=== PATIENT | female | born 1980 | race Caucasian/White ===

== ENCOUNTER 2018-05-04 17:55 | Emergency (ER) | payer MEDICAID, SELFPAY ==
[2018-05-04 18:01] VITALS: BP 158/93; PULSE 112; RESP 20; TEMP 35.9; O2SAT 97
--- NOTE | 2018-05-04 18:20 | ED.GENADUL_ITS ---
Disposition Clinical Impression: Acute odontalgia Disposition: HOME Condition: Good Instructions: Toothache (ED), Dental Abscess (ED), Dental Caries (ED) Additional Instructions: Small, frequent sips of fluids to maintain hydration. He may gargle salt water to reduce the inflammation. Apply warm, moist heat area to increase speed of healing. Your allergies to penicillin and related antibiotics as well as clindamycin make azithromycin a reasonable choice. Please take this prescription as written for 1 week's time. See enclosed dental referral numbers and please make an appointment for follow- up with dentistry. Return to the emergency department for any acute concerns. May use Tylenol 650-975 mg every 4-6 hours, and/or your prescribed ibuprofen. Prescriptions: Azithromycin 250 mg PO DAILY #7 tablet Medical Decision Making - Medical Decision Making 37-year-old female presents with odontalgia and apical tooth infection. She is allergic to penicillin and clindamycin, states she cannot have any related cephalosporins. She will require antibiotic therapy and follow-up with dentistry. Best choice given her limitations would be azithromycin which I will prescribe. Discussed home management as well as return precautions. She stable for outpatient management History of Present Illness - General Chief complaint: DentalOral Stated complaint: DENTAL Time Seen by Provider: 05/04/18 18:10 Source: patient, RN notes reviewed Mode of arrival: ambulatory Limitations: no limitations - History of Present Illness Initial comments: Right upper dental pain: 37-year-old female presents with gradual onset over 2 days time of right upper dental pain that radiates to her cheek. She has poor dentition recently lost her dentist. She has constant pain though is somewhat improved with ibuprofen, worse with eating. Nose change to voice, difficulty swallowing, fever. She has not fallen or struck her face - Related Data Cyclobenzaprine HCl 10 mg PO TID tab-cap 10/30/15 Fluoxetine HCl [Prozac] 60 mg PO DAILY tab-cap 10/30/15 Loratadine 10 mg PO DAILY tab-cap 10/30/15 Meloxicam [Mobic] 15 mg PO DAILY tab-cap 10/30/15 Sumatriptan Succinate [Imitrex] 100 mg PO ONCE tab-cap 10/30/15 Azithromycin 250 mg PO DAILY #7 tablet 05/04/18 Allergies Allergy/AdvReac Type Severity Reaction Status Date / Time clindamycin Allergy Intermediate Hives Unverified 05/04/18 18:04 penicillin V potassium Allergy Unknown Unverified 05/04/18 18:04 [From Pen-Vee K] Sulfa (Sulfonamide Allergy Unknown Unverified 05/04/18 18:04 Antibiotics) Review of Systems Other: 6 systems reviewed, otherwise negative Past Medical History - Past Medical History Medical history: hypertension General Exam - General Limitations: no limitations General appearance: alert, in no apparent distress - Head Head exam: Present: atraumatic, normocephalic - Eye Eye exam: Present: PERRL, EOMI - ENT ENT exam: Present: other (Uvula midline, no pharyngeal swelling or exudate. Multiple dental caries and partial fractures. Tenderness to tooth approximately #7 and 8. No significant fluctuance. No swelling of the buccal or lingual aspect.) - Neck Neck exam: Present: normal inspection, full ROM. Absent: meningismus - Respiratory Respiratory exam: Absent: respiratory distress - Neurological Exam Neurological exam: Present: alert, oriented X3 - Psychiatric Psychiatric exam: Present: normal affect, normal mood - Skin Skin exam: Present: warm, dry, intact Course Vital Signs - 24 hr 05/04/18 18:01 Temperature 35.9 C L Pulse 112 H Respiratory 20 Rate Blood Pressure 158/93 Pulse Oximetry 97
[2018-05-04] MEDS: Azithromycin 250 MG TAB 500 MG PO (18:21)
[2018-05-04] MEDS: Acetaminophen 500 MG TAB 1000 MG PO (18:21)
== END 2018-05-04 18:34 | disposition home or self-care (01) ==
PROVIDERS: Emergency Provider Emergency Medicine; PCP Nurse Practitioner Family
DX: R68.84 Jaw pain (principal); K02.9 Dental caries, unspecified; K04.7 Periapical abscess without sinus; I10 Essential (primary) hypertension
CPT/HCPCS: 99283

== ENCOUNTER 2018-06-16 11:43 | Outpatient (REF) | payer MEDICAID, SELFPAY ==
[2018-06-16 14:37] LABS: Microalb ug/mg Crea 9.3 ug/mg Cr
== END 2018-06-16 12:03 ==
LOC: NCHCN 11:43
PROVIDERS: PCP Nurse Practitioner Family; Visit Provider Nurse Practitioner Family
DX: E66.9 Obesity, unspecified (principal)
CPT/HCPCS: 82043; 82570

== ENCOUNTER 2018-06-19 10:56 | Outpatient (REF) | payer MEDICAID, SELFPAY ==
[2018-06-19 13:33] LABS: ALT 28 U/L (12-78); AST 24 U/L (15-37); Albumin 3.7 g/dL (3.4-5.0); Alkaline Phosphatase 137 U/L (46-116); Anion Gap 10.2 mmol/L (3-11); BUN 11 mg/dL (7-18); Bilirubin, Total 0.3 mg/dL (0.2-1.0); CO2 27.8 mmol/L (21.0-32.0); CREATININE 1.02 mg/dL (0.55-1.02); Calcium 8.7 mg/dL (8.5-10.1); Chloride 102 mmol/L (98-107); Cholesterol 192 mg/dL (50-200); Glucose 99 mg/dL (70-100); HDL Cholesterol 55 mg/dL (40-60); LDL CHOLESTEROL 113 mg/dL (<100); Potassium 4.1 mmol/L (3.5-5.1); Sodium 140 mmol/L (136-145); Total Protein 7.1 g/dL (6.4-8.2); Triglyceride 133 mg/dL (30-150)
== END 2018-06-19 11:16 ==
LOC: NCHCN 10:56
PROVIDERS: PCP Nurse Practitioner Family; Visit Provider Nurse Practitioner Family
DX: E66.9 Obesity, unspecified (principal); Z13.220 Encounter for screening for lipoid disorders; Z13.228 Encounter for screening for other metabolic disorders
CPT/HCPCS: 80053; 80061; 83721

== ENCOUNTER 2018-09-07 16:24 | Outpatient (REF) | payer MEDICAID, SELFPAY ==
[2018-09-07 18:46] LABS: Alkaline Phosphatase 116 U/L (46-116)
== END 2018-09-07 16:44 ==
LOC: NCHCN 16:24
PROVIDERS: PCP Nurse Practitioner Family; Visit Provider Nurse Practitioner Family
DX: R74.8 Abnormal levels of other serum enzymes (principal)
CPT/HCPCS: 84075

== ENCOUNTER 2019-01-13 14:01 | Outpatient (REF) | payer MEDICAID, SELFPAY ==
[2019-01-14 08:19] LABS: HCT 40.3 % (36.0-46.0); HGB 12.5 g/dL (12.0-15.5); Mean Corpuscular Hemoglobin 26.7 pg (27.0-33.0); Mean Corpuscular Volume 85.9 fL (80-95); Mean Platelet Volume 10.1 fL (8.0-11.0); Platelet Count 372 x1000/uL (130-400); RBC 4.69 m/cumm (4.00-5.20); White Blood Cell Count 8.47 k/cumm (4.4-10.8)
[2019-01-14 10:23] LABS: ALT 22 U/L (12-78); AST 14 U/L (15-37); Albumin 3.5 g/dL (3.4-5.0); Alkaline Phosphatase 131 U/L (46-116); Anion Gap 7.5 mmol/L (3-11); BUN 10 mg/dL (7-18); Bilirubin, Total 0.2 mg/dL (0.2-1.0); CO2 30.5 mmol/L (21.0-32.0); CREATININE 0.84 mg/dL (0.55-1.02); Calcium 9.1 mg/dL (8.5-10.1); Chloride 102 mmol/L (98-107); Glucose 97 mg/dL (70-100); Potassium 3.8 mmol/L (3.5-5.1); Sodium 140 mmol/L (136-145); TSH (W/Ref FT4) 3.22 uIU/mL (0.358-3.74)
== END 2019-01-13 14:21 ==
LOC: NCHCN 14:01
PROVIDERS: PCP Nurse Practitioner Family; Visit Provider Nurse Practitioner Family
DX: F32.9 Major depressive disorder, single episode, unspecified (principal); R53.83 Other fatigue; R60.0 Localized edema
CPT/HCPCS: 80053; 85027; 84443

== ENCOUNTER 2019-04-27 12:19 | Outpatient (CLI) | payer MEDICAID, SELFPAY ==
--- NOTE | 2019-04-27 15:44 | HPE_ITS ---
Date of service: 04/27/19 Assessment and Plan (1) Left carpal tunnel syndrome: Current visit: Yes Status: Chronic Left ECTR Details of surgery were discussed with patient as well as risks and pertinent anatomy. All questions were answered. History of Present Illness Chief Complaint: Left hand numbness and pain Narrative: Susan is a 38-year-old female who comes in today for a preop history and physical for a left ECTR. She has been dealing with left hand pain and numbness for a few years now. She has had nerve conduction studies about 3 years ago which did not show significant latency in any of the nerves, but her clinical presentation is very suggestive of carpal tunnel syndrome of the left hand. She has numbness and tingling especially at night, but also when she is driving or trying to use her arm in space. She has responded pretty well to nighttime splinting, but still continues to have symptoms even despite this treatment. She has done very well from a right OCTR performed by Dr. Palmer about 3 years ago, and since she has not responded completely with conservative treatments on the left side, Dr. Hernandez does offer a left ECTR at this time. She agrees with this plan and is anxious to proceed. Pertinent Surgical Information Patient denies history of hypertension, CVA, [place], angina, asthma, COPD, renal or liver disorders, hepatitis, bleeding disorders, diabetes, immune or thyroid disorders. No complications from anesthesia. Review of Systems Constitutional Denies fever(s) ENT Denies dizziness and Denies sore throat Cardiovascular Denies chest pain, Denies palpitations and Denies dyspnea Respiratory Denies cough and Denies dyspnea Gastrointestinal Denies abdominal pain, Denies melena, Denies hematochezia, Denies diarrhea, Denies nausea and Denies vomiting Genitourinary Denies hematuria and Denies dysuria Neurologic Denies dizziness Endocrine Denies palpitations [facility] Medical History (Updated 04/27/19 @ 15:55 by RACHEL Carreon) Anxiety (Chronic) Hypertension (Chronic) Migraines (Chronic) Morbid obesity (Acute) Personality disorder (Acute) Surgical History History of tubal ligation (Chronic) Hx of eye surgery (Acute) Hx of oophorectomy (Acute) Open Carpal Tunnel release (01/09/16) Family History Mother Hypertension Father Diabetes Father Narcolepsy Social History (Updated 04/27/19 @ 15:53 by RACHEL Carreon) Smoking/Tobacco Use Status: Current every day Tobacco Type: cigarettes Smoking packs per day: 0.5 Drug use: Occasionally Substance use type: marijuana Do you feel safe at home: Yes Do you feel safe in your relationship?: Yes Meds Home Medications Medication Instructions Recorded Confirmed Type cyclobenzaprine 10 mg PO TID tab-cap 10/30/15 04/27/19 History fluoxetine [Prozac] 60 mg PO DAILY tab-cap 10/30/15 04/27/19 History loratadine 10 mg PO DAILY tab-cap 10/30/15 04/27/19 History meloxicam [Mobic] 15 mg PO DAILY tab-cap 10/30/15 04/27/19 History sumatriptan succinate [Imitrex] 100 mg PO ONCE tab-cap 10/30/15 04/27/19 History hydrochlorothiazide 12.5 mg PO QAM 04/27/19 04/27/19 History Allergies Allergy/AdvReac Type Severity Reaction Status Date / Time clindamycin Allergy Intermediate Hives Unverified 04/27/19 12:52 penicillin V potassium Allergy Unknown Unverified 04/27/19 12:52 [From Albin-Desiree K] Sulfa (Sulfonamide Allergy Unknown Unverified 04/27/19 12:52 Antibiotics) Exam [facility] Head: normocephalic and atraumatic General nose exam: no nasal discharge Throat: uvula midline and no uvular edema Other: soft palate rises symmetrically, no erythema Eyes Conjunctivae: conjunctivae normal Sclera: sclerae normal Pupils: PERRL Resp Effort & Inspection: normal respiratory effort Auscultation: clear to auscultation bilaterally and no wheezes Cardio Rate: regular rate Rhythm: regular rhythm Heart Sounds: S1 normal, S2 normal and no murmurs GI Palpation: soft, no hepatosplenomegaly and nontender Auscultation: normal bowel sounds
== END 2019-04-27 12:39 ==
PROVIDERS: PCP Nurse Practitioner; Visit Provider Student in an Organized Health Care Education/Training Program
DX: Z01.818 Encounter for other preprocedural examination (principal)
CPT/HCPCS: NC

== ENCOUNTER 2019-04-29 15:46 | Outpatient (REF) | payer MEDICAID, SELFPAY ==
[2019-04-29 18:37] LABS: ALT 26 U/L (12-78); AST 17 U/L (15-37); Albumin 3.5 g/dL (3.4-5.0); Alkaline Phosphatase 119 U/L (46-116); Anion Gap 9.4 mmol/L (3-11); BUN 10 mg/dL (7-18); Bilirubin, Total 0.2 mg/dL (0.2-1.0); CO2 26.6 mmol/L (21.0-32.0); Calcium 8.9 mg/dL (8.5-10.1); Chloride 104 mmol/L (98-107); Glucose 101 mg/dL (70-100); Potassium 4.1 mmol/L (3.5-5.1); Sodium 140 mmol/L (136-145)
== END 2019-04-29 16:06 ==
LOC: NCHCN 15:46
PROVIDERS: PCP Nurse Practitioner; Visit Provider Nurse Practitioner Family
DX: I10 Essential (primary) hypertension (principal); R60.0 Localized edema; R74.8 Abnormal levels of other serum enzymes
CPT/HCPCS: 80053

== ENCOUNTER 2019-05-04 10:42 | Day surgery (SDC) | payer MEDICAID, SELFPAY ==
[2019-04-27 12:44] VITALS: BP 148/98; PULSE 82; RESP 18; TEMP 36.7; O2SAT 96
[2019-05-04 11:03] VITALS: BP 143/97; PULSE 99; RESP 18; TEMP 35.6; O2SAT 99
[2019-05-04] MEDS: Lactated Ringers 1,000 ML 80 ML IV (11:32)
--- NOTE | 2019-05-04 11:35 | W.PM.DSUDISC ---
Discharge Plan Disposition Patient Disposition: HOME Condition: Good Discharge Details Reason For Visit: (L) CTS Attending Provider: Charles Hernandez Primary Care Provider: Joselyn Lino Home Meds and New Rx's Prescriptions: New hydrocodone-acetaminophen 5-325 mg tablet 1 tab PO Q6H PRN (Reason: severe pain) Qty: 4 RF: 0 acetaminophen 500 mg tablet 500 mg PO Q6H PRN (Reason: pain) Qty: 60 RF: 0 ibuprofen 600 mg tablet 600 mg PO TID PRN (Reason: pain) Qty: 60 RF: 0 Continued fluoxetine [Prozac] 40 MG capsule 60 mg PO DAILY RF: 0 cyclobenzaprine 10 MG tablet 10 mg PO TID RF: 0 sumatriptan succinate [Imitrex] 100 MG tablet 100 mg PO ONCE RF: 0 meloxicam [Mobic] 15 MG tablet 15 mg PO DAILY RF: 0 loratadine 10 MG tablet 10 mg PO DAILY RF: 0 hydrochlorothiazide 12.5 mg Tablet 12.5 mg PO QAM RF: 0 melatonin 10 mg Tablet 10 mg PO HS RF: 0 Discharge Instructions Stand Alone Forms: David Gramajo Tunnel Release Referrals: Charles Hernandez MD [ [facility] STAFF PHYSICIAN] - Activity:: Elevate Remove Dressings/Wound Care:: 72 hours Shower/Bathe:: 72 hours Diet:: As Tolerated Discharge Orders Discharge Orders: Discharge Order (Routine); Ordered 05/04/19 Ordered By: Taylor Gan DS: Diagnosis Discharge Diagnosis (1) Left carpal tunnel syndrome: Status: Chronic
[2019-05-04] MEDS: ceFAZolin 3,000 MG in Normal Saline 100 ML 200 MG IVPB (15:53)
[2019-05-04] MEDS: Lidocaine 1% Multi-Dose 50 ML VIAL (16:00)
[2019-05-04] MEDS: Sodium Bicarbonate 50 MEQ/50 ML VIAL (16:00)
--- NOTE | 2019-05-04 16:24 | W.PM.OP ---
Date of service: 05/04/19 Time of Service: 16:25 Operative Note DATE OF PROCEDURE: 05/04/19 PRE-OP DIAGNOSIS: Left Carpal Tunnel Syndrome POST-OP DIAGNOSIS: same PROCEDURE: Left Endoscopic Carpal Tunnel Release SURGEON: Charles Hernandez ANESTHESIA: MAC ESTIMATED BLOOD LOSS: 0 PATHOLOGY: none sent TOURNIQUET TIME: 10 COMPLICATIONS: None Patient was transported to: same day Patient's condition: stable Indications: I have seen Susan in clinic for symptoms of carpal tunnel syndrome. The numbness, tingling, and pain limited function. Clinical exam findings with nerve conduction tests confirmed the diagnosis of carpal tunnel syndrome. Nonoperative measures such as bracing, time, activity modifications had been tried but disability and pain persisted. I discussed carpal tunnel release with the patient. I reviewed the risks of the procedure to include, but not limited to, bleeding, infection, pain, stiffness, incomplete release, damage to nerves or vessels, persistent numbness, recurrence. Despite these risks, the patient elected to proceed. Findings: There was tightened carpal tunnel. This was dilated and released successfully with the endoscopic with increased space within the tunnel. The antebrachial fascia was released proximally freeing the median nerve at the wrist. Procedure Description: Susan was greeted in the preoperative holding area where the correct side was identified and marked. The consent was reviewed with the patient and signed. The history and physical was updated. All questions were answered. She was taken back to the operating room. The patient was placed into the supine position on the operating room table with the left arm on an arm board. A nonsterile tourniquet was placed high onto the arm. All bony prominences were well padded. Prophylactic antibiotics in the form of Cefazolin were administered. The left arm was then prepped with Chloraprep and draped in a standard fashion with stockinette and extremity drape. A timeout to confirm correct identity, side and site, procedure, allergies, anesthesia, and medical concerns was performed. The surgical site was marked in the volar wrist creases in line with the radial border of the fourth ray. This area was anesthetized with approximately 6cc of 1% Lidocaine. The limb was then exsanguinated with an Esmarch. The skin was incised with a 15 blade, approximately 1cm. The skin only was cut and the deeper tissue was dissected bluntly with a tenotomy scissor, avoiding passing nerve and venous structures. The fascia was penetrated and opened bluntly. A two-prong skin hook was placed under this proximal fascial edge. A series of hamate finders were used to identify and dilate the carpal tunnel. Synovial elevator was used to free synovial attachments to the underside of the transverse carpal ligament. My thumb was kept in the palm to milton the distal extent of the carpal tunnel and correctly position the hand. The Microaire endoscope was inserted without difficulty and without resistance. Excellent visualization showed horizontally running fibers of the transverse carpal ligament (TCL). The distal extent of the TCL was visualized and the end of the scope palpated with the thumb. The blade was elevated and withdrawn from distal to proximal. The TCL was split into two flaps. The endoscope was reinserted to confirm complete release and any remnant ligament was incised. The scope was withdrawn and the proximal aspect of the carpal tunnel was grossly inspected and appeared release with the median nerve visible. The antebrachial fascia at the level of the wrist was then freed from the overlying skin and then the underlying median nerve with blunt dissection. This was transected longitudinally for about 3cm proximal to the wrist incision. The wound was then irrigated with easy flow of irrigant distally and proximally. The incision was closed with a single 4-0 Nylon suture. The wound was dressed with Xeroform, Gauze, Kerlix and Efrem. The tourniquet was deflated with the initial dressing and held with some pressure. Blood flow returned easily to all digits with capillary refill less than 2 seconds. The patient tolerated the procedure well and was returned to the Same Day Surgery area in a stable condition suffering no known complication.
[2019-05-04 16:50] VITALS: BP 117/77; PULSE 88; RESP 18; TEMP 36.6; O2SAT 98
== END 2019-05-04 17:12 | disposition home or self-care (01) ==
PROVIDERS: PCP Nurse Practitioner; Visit Provider Student in an Organized Health Care Education/Training Program
PROC: 01N54ZZ Release Median Nerve, Percutaneous Endoscopic Approach (ICD-10-PCS; CPT 29848; principal; 2019-05-04 13:30)
DX: G56.02 Carpal tunnel syndrome, left upper limb (principal)
CPT/HCPCS: 29848; J0690; J2250; L3650

== ENCOUNTER 2019-06-22 19:14 | Outpatient (REF) | payer MEDICAID, SELFPAY ==
[2019-06-22 19:29] LABS: ALT 23 U/L (14-59); AST 13 U/L (15-37); Albumin 3.6 g/dL (3.4-5.0); Alkaline Phosphatase 132 U/L (46-116); Anion Gap 11.1 mmol/L (3-11); BUN 12 mg/dL (7-18); Bilirubin, Total 0.2 mg/dL (0.2-1.0); CO2 26.9 mmol/L (21.0-32.0); CREATININE 0.93 mg/dL (0.55-1.02); Calcium 9.6 mg/dL (8.5-10.1); Calculated LDL 113 mg/dL; Chloride 102 mmol/L (98-107); Cholesterol 194 mg/dL (50-200); Glucose 103 mg/dL (70-100); HCT 41.3 % (36.0-46.0); HDL Cholesterol 47 mg/dL (40-60); Mean Corp. HGB Concentration 31.5 g/dL (32.0-36.0); Mean Corpuscular Hemoglobin 26.9 pg (27.0-33.0); Mean Corpuscular Volume 85.5 fL (80-95); Mean Platelet Volume 9.9 fL (8.0-11.0); Platelet Count 418 x1000/uL (130-400); Potassium 4.1 mmol/L (3.5-5.1); RBC 4.83 m/cumm (4.00-5.20); RBC Distribution Width 15.5 % (11.7-14.6); Sodium 140 mmol/L (136-145); Total Protein 7.3 g/dL (6.4-8.2); Triglyceride 170 mg/dL (30-150); White Blood Cell Count 8.61 k/cumm (4.4-10.8)
== END 2019-06-22 19:34 ==
LOC: NCHCN 19:14
PROVIDERS: PCP Nurse Practitioner; Visit Provider Nurse Practitioner Family
DX: I10 Essential (primary) hypertension (principal)
CPT/HCPCS: 80053; 80061; 85027

== ENCOUNTER 2020-05-19 14:10 | Outpatient (REF) | payer MEDICAID, SELFPAY ==
[2020-05-19 18:53] LABS: COMMENT (LAB VIEW ONLY) 222.67 mg/dL; Microalb ug/mg Crea 3.2 ug/mg Cr
== END 2020-05-19 14:30 ==
LOC: NCHCN 14:10
PROVIDERS: PCP Nurse Practitioner; Visit Provider Nurse Practitioner Family
DX: I10 Essential (primary) hypertension (principal); R73.03 Prediabetes; R74.8 Abnormal levels of other serum enzymes
CPT/HCPCS: 82043; 82570

== ENCOUNTER 2020-05-22 20:16 | Outpatient (REF) | payer MEDICAID, SELFPAY ==
[2020-05-22 19:24] LABS: HCT 40.7 % (36.0-46.0); HGB 12.7 g/dL (11.2-15.7); MCHC 31.2 % (32.0-36.0); MCV 83.4 fL (80-95); MPV 9.7 fL (8.0-11.0); Platelet Count 370 10^3/uL (130-400); RBC 4.88 10^6/uL (3.93-5.22); RDW 14.7 % (11.7-14.6); RDW-SD 44.7 fL; WBC 7.01 10^3/uL (4.4-10.8)
[2020-05-22 20:27] LABS: Hemoglobin A1C 6.4 % (<5.7)
== END 2020-05-22 20:36 ==
LOC: NCHCN 20:16
PROVIDERS: PCP Nurse Practitioner; Visit Provider Nurse Practitioner Family
DX: R73.03 Prediabetes (principal); I10 Essential (primary) hypertension; R74.8 Abnormal levels of other serum enzymes
CPT/HCPCS: 85027; 82043; 82570; 83036

== ENCOUNTER 2020-07-21 03:09 | Outpatient (CLI) | payer MEDICAID, SELFPAY ==
--- NOTE | 2020-07-21 | DI.RAD_ITS ---
EXAM: XR FOOT LT COMPLETE CLINICAL HISTORY: LT HEEL PAIN,M79.672 TECHNIQUE: COMPARISON: No exams were available for comparison FINDINGS: Three views were obtained. There is are prominent osteophyte of the site of attachment of the planta r fascia on the calcaneus. There is a small Achilles attachment osteophyte as well. No other bony o r soft tissue abnormality seen. IMPRESSION: RADIATION DOSE DELIVERED: Total DLP
== END 2020-07-21 03:29 ==
PROVIDERS: PCP Nurse Practitioner Family; Visit Provider Nurse Practitioner Family
DX: M79.672 Pain in left foot (principal); M25.775 Osteophyte, left foot
CPT/HCPCS: 73630

== ENCOUNTER 2021-03-07 14:58 | Outpatient (REF) | payer MEDICAID, SELFPAY ==
--- NOTE | 2021-03-07 13:45 | PAPFT_PTH ---
PATIENT: Susan Delcid LOC: [facility] U#:[id number] AGE/SX: 40/F ROOM: RE03/07/[address]: Kassy Le NP : 1980 BED: DIS: 03/07/2021 SPEC #: [id number] RECD: 03/07/21 18:10 STATUS: FABIANO SILVER #: [id number] OYSSI: 03/07/21 13:[address]: Kassy Le NP DEPT: [facility] Cytology RECD BY: Laurie Castro ENTERED: 03/07/21 18:10 SP TYPE: PAPFT OTHR DR: Ronnie Walsh Tissues: 1 - CX/ENDOCX FOR PAP SMEARS Procedures: PAP THIN PREP/UVM Screening HPV DNA PROBE Comments: [id number]
== END 2021-03-07 14:59 | disposition home or self-care (01) ==
LOC: LBN 14:58
PROVIDERS: PCP Nurse Practitioner Family; Visit Provider Nurse Practitioner Women's Health
DX: Z12.4 Encounter for screening for malignant neoplasm of cervix (principal); Z11.51 Encounter for screening for human papillomavirus (HPV)
CPT/HCPCS: 88142; 87624

== ENCOUNTER 2021-03-30 04:16 | Outpatient (CLI) | payer MEDICAID, SELFPAY ==
--- NOTE | 2021-03-30 07:00 | DI.MAMMO_ITS ---
Exam(s) MAMMO SCREENING EXAM: MAMMO SCREENING CLINICAL HISTORY: screening,Z12.39 TECHNIQUE: Mammograms were interpreted according to the usual protocol including computer analysis w [employer] CAD system, tomosynthesis and C-view imaging. COMPARISON: None. Baseline examination. FINDINGS: The breasts are composed of scattered fibroglandular densities, Breast Density category B. In the right breast, there is a question of partially obscured nodule seen in the central subareolar region on the CC view. Spot compression views are recommended for further evaluation. Ultrasound may also be indicated at that time. No suspicious masses or suspicious microcalcifications are seen in th e left breast.. No skin thickening or abnormal axillary lymph nodes are seen in either breast. . IMPRESSION: BI-RADS Cat 0 - Assessment Incomplete: Need additional imaging evaluation Breast Density - Category B, scattered fibroglandular densities. A negative radiographic report should not delay biopsy if a dominant or clinically suspicious mass is present. Up to ten percent of cancers are not identified on mammography. A negative report may reinforce clinical impression. Adenosis and dense breasts may obscure an underlying neoplasm. False positive reports average 6 to 10%. Patient will receive a letter notifying them of these results.
--- NOTE | 2021-03-30 07:00 | DI.US_ITS ---
Exam(s) US PELVIS TRANSVAGINAL EXAM: US PELVIS TRANSVAGINAL CLINICAL HISTORY: Amenorrhea for 3 years, heavy bleeding last week,N92.1 TECHNIQUE: Transabdominal and transvaginal imaging was performed using standard protocol. COMPARISON: US PELVIS TRANSVAG from 04/04/2011 US PELVIS TRANSVAG from 04/04/2011 FINDINGS: KIDNEYS: Kidneys are symmetric in size. No evidence of renal calculi. No evidence of hydronephrosis. No renal mass or cyst identified. UTERUS: Anteverted. 7.1 x 3.8 x 4.4 cm Endometrium: 10 millimeters, hypervascular common no focal mass or fluid in the endometrial canal. Myometrium: Unremarkable. Cervix: Unremarkable. OVARIES: Right: Cyst or mass: Not visualized. Question prior right oophorectomy. A dermoid was noted on the right in 2010. Left: Cyst or mass: Cystic area with debris on the left ovary 1.9 cm. DOPPLER: Arterial and venous flow demonstrated to the left ovary.. CUL-DE-SAC: Free fluid: None. IMPRESSION: 1. Thickened hypervascular endometrium. No focal lesion visible.. 2. 1.9 centimeter complex cyst of the left ovary. A follow-up exam could be considered. 3. Apparent prior right oophorectomy. DATA REPOSITORY:
== END 2021-03-30 04:36 ==
PROVIDERS: PCP Nurse Practitioner Family; Visit Provider Nurse Practitioner Women's Health
DX: Z12.31 Encounter for screening mammogram for malignant neoplasm of breast (principal); R92.8 Other abnormal and inconclusive findings on diagnostic imaging of breast; N83.202 Unspecified ovarian cyst, left side; R93.89 Abnormal findings on diagnostic imaging of other specified body structures; N93.8 Other specified abnormal uterine and vaginal bleeding; Z90.721 Acquired absence of ovaries, unilateral
CPT/HCPCS: 77063; 77067; 76830; 76856

== ENCOUNTER 2021-04-05 14:40 | Outpatient (REF) | payer MEDICAID, SELFPAY ==
--- NOTE | 2021-04-05 14:00 | ENDOMET_PTH ---
PATIENT: Susan Delcid LOC: N U#:[id number] AGE/SX: 40/F ROOM: RE04/05/[address]: Michelle Palomo : 1980 BED: DIS: 04/05/2021 SPEC #: [id number] RECD: 04/05/21 17:54 STATUS: FABIANO REQ #: [id number] YOSSI: 04/05/21 14:[address]: Michelle Palomo DEPT: Surgical Specimen RECD BY: Laurie Castro ENTERED: 04/05/21 17:54 SP TYPE: Endomet OTHR DR: Ronnie Walsh Tissues: 1 - ENDOMETRIUM BX/MONA Procedures: GROSS AND MICRO LEVEL 4 Comments: [id number]
== END 2021-04-05 14:41 | disposition home or self-care (01) ==
LOC: LBN 14:40
PROVIDERS: PCP Nurse Practitioner Family; Visit Provider Obstetrics & Gynecology Gynecology
DX: N93.8 Other specified abnormal uterine and vaginal bleeding (principal); N85.8 Other specified noninflammatory disorders of uterus
CPT/HCPCS: 88305

== ENCOUNTER 2021-04-20 03:49 | Outpatient (CLI) | payer MEDICAID, SELFPAY ==
--- NOTE | 2021-04-20 | DI.US_ITS ---
Exam(s) MG MAMMO SCREEN CALL BACK UNI US BREAST RT LIMITED EXAM: MG MAMMO SCREEN CALL BACK UNI and U/S breast RT limited CLINICAL HISTORY: F/U MAMMO, ? RT BREAST NODULE. TECHNIQUE: Craniocaudal and mediolateral oblique Full Field Digital Mammography views of the right b reast with Computer Aided Diagnosis followed by Tomosynthesis and right breast ultrasound. COMPARISON: Comparison is made with baseline examination. FINDINGS: Mammography/Tomosynthesis: Masses/Architectural Distortion: The 0.6 cm area of nodularity in the retroareolar region of the righ t breast persists. Microcalcifictions: No suspicious pleomorphic-type are seen. Skin Thickening/Nipple Retraction: None. Right breast US: Echotexture: Normal appearance of the glandular tissue. Shadowing: No suspicious foci. Cyst: At the 12 o'clock position 11 cm from the nipple there is a 3 cm simple cyst. At the 12 o'cloc k position 3 cm from the nipple there is a 0.5 x 0.2 x 0.4 cm hypoechoic nodule with sonographic appe arance of a lymph node. This appears to correspond to the mammographic abnormality. At the 12 o'violeta ck position 1 cm from the nipple there is a 4 mm cyst present. Solid lesions: None seen. Ductal dilation: None. IMPRESSION: 1. No definite evidence of malignancy is noted. 2. A follow-up mammogram and ultrasound are requested in 3 months on the right breast. 3. The findings were discussed with the patient on the date of the examination. BI-RADS Category 3 - Probably Benign Finding: Recommend follow-up imaging in 3 months Breast Density - Category B - Scattered areas of fibroglandular density Breast density Category C or D implies that the patient has dense breast tissue. Dense breast tissue can make it harder to find cancer on a mammogram. Dense breast tissue is also associated with an incr eased risk of breast cancer. This information about the result of the mammogram report was provided to the patient to raise their awareness. Use this report when you speak with the patient about their risks for breast cancer, which includes their family history. At that time, you may recommend additional screening tests (Ultrasoun d or MRI) as these tests may add significant information. A negative radiographic report should not delay biopsy if a dominant or clinically suspicious mass is present. Up to ten percent of cancers are not identified on mammography. A negative report may reinforce clinical impression. Adenosis and dense breasts may obscure an underlying neoplasm. False positive reports average 6 to 10%. Patient will receive a letter notifying them of these results.
== END 2021-04-20 04:09 ==
PROVIDERS: PCP Nurse Practitioner Family; Visit Provider Nurse Practitioner Women's Health
DX: Z12.31 Encounter for screening mammogram for malignant neoplasm of breast (principal); R92.8 Other abnormal and inconclusive findings on diagnostic imaging of breast
CPT/HCPCS: 76642; 77063; 77067

== ENCOUNTER 2021-07-25 00:39 | Outpatient (CLI) | payer MEDICAID, SELFPAY ==
--- NOTE | 2021-07-25 | DI.US_ITS ---
Exam(s) US BREAST RT COMPLETE EXAM: US BREAST RT COMPLETE CLINICAL HISTORY: 3 MO F/U, F/U ABNL MAMMO, R92.8. TECHNIQUE: Complete ultrasound of the right breast was performed including all 4 quadrants, the retr oareolar region, and the ipsilateral axilla. COMPARISON: Prior mammograms were reviewed. Prior ultrasound 04/20/2021 was also reviewed FINDINGS: There are 3 ultrasound findings in the right breast again noted. These all are located at 12 o'clock position and all have the appearance of microcysts. Approximately 11 cm from the nipple there is a 3 x 2 millimeter microcyst again noted. Approximately 2 cm from the nipple there is a 3 x 1 millimeter microcyst noted Approximately 2 cm from the nipple there is also a 3 x 2 millimeter microcyst. Most importantly, there are no solid lesions in all 4 quadrants of the right breast and no adenopathy in the right axilla. IMPRESSION: Stable benign 3 microcysts at 12 o'clock position of the right breast as described above, unchanged f rom the prior ultrasound. There is no ultrasound finding to correspond to the asymmetric density see n on the right breast CC mammographic view (which is not truly evident on the MLO view). Appropriate follow-up is repeat mammogram in March 2022, with earlier imaging if a self detected breas t changes noted.. BI-RADS Category 2 - Benign Findings Breast Density - Category B - Scattered areas of fibroglandular density Breast density Category C or D implies that the patient has dense breast tissue. Dense breast tissue can make it harder to find cancer on a mammogram. Dense breast tissue is also associated with an incr eased risk of breast cancer. This information about the result of the mammogram report was provided to the patient to raise their awareness. Use this report when you speak with the patient about their risks for breast cancer, which includes their family history. At that time, you may recommend additional screening tests (Ultrasoun d or MRI) as these tests may add significant information. A negative radiographic report should not delay biopsy if a dominant or clinically suspicious mass is present. Up to ten percent of cancers are not identified on mammography. A negative report may reinforce clinical impression. Adenosis and dense breasts may obscure an underlying neoplasm. False positive reports average 6 to 10%. Patient will receive a letter notifying them of these results.
--- NOTE | 2021-07-25 10:26 | DI.MAMMO_ITS ---
Exam(s) MAMMO DIAGNOSTIC UNI EXAM: MAMMO DIAGNOSTIC UNI-RIGHT CLINICAL HISTORY: 3 MO F/U, F/U ABNL MAMMO, R92.8. TECHNIQUE: Unilateral spot mammographic images were obtained with 3D tomosynthesis technique and uti lizing computer aided detection (CAD). COMPARISON: Prior baseline mammogram performed March 2021. Prior ultrasound 04/20/2021 was also revi ewed FINDINGS: Previously described asymmetric density in the right breast is unchanged on the mammogram. There are no new significant mammographic findings in the right breast. Following this diagnostic right breast mammogram we performed complete right breast ultrasound which not reveal evidence of a solid nodule. It revealed unchanged microcysts at 12 o'clock position. Please see separate breast report dictation from today. IMPRESSION: Stable benign-appearing mammographic findings. See separate ultrasound report which does not reveal concerning solid lesion. Appropriate follow-up is to keep this patient on her yearly mammogram schedule, this implying that he r next mammogram would be in March 2022, with earlier imaging if a self detected breast changes noted. . Despite relatively young age she had this mammogram in March 2022 The patient was informed of the findings and follow-up recommendations prior to leaving the [facility]. BI-RADS Category 2 - Benign Findings Breast Density - Category B - Scattered areas of fibroglandular density Breast density Category C or D implies that the patient has dense breast tissue. Dense breast tissue can make it harder to find cancer on a mammogram. Dense breast tissue is also associated with an incr eased risk of breast cancer. This information about the result of the mammogram report was provided to the patient to raise their awareness. Use this report when you speak with the patient about their risks for breast cancer, which includes their family history. At that time, you may recommend additional screening tests (Ultrasoun d or MRI) as these tests may add significant information. A negative radiographic report should not delay biopsy if a dominant or clinically suspicious mass is present. Up to ten percent of cancers are not identified on mammography. A negative report may reinforce clinical impression. Adenosis and dense breasts may obscure an underlying neoplasm. False positive reports average 6 to 10%. Patient will receive a letter notifying them of these results.
== END 2021-07-25 00:59 ==
PROVIDERS: PCP Nurse Practitioner Family; Visit Provider Nurse Practitioner Women's Health
DX: R92.8 Other abnormal and inconclusive findings on diagnostic imaging of breast (principal)
CPT/HCPCS: 76642; 77061; 77065; G0279

== ENCOUNTER 2022-02-01 18:49 | Outpatient (REF) | payer MEDICAID, SELFPAY ==
[2022-02-01 15:09] LABS: HCT 40.8 % (36.0-46.0); HGB 12.5 g/dL (11.2-15.7); MCH 25.7 pg (27.0-33.0); MCHC 30.6 % (32.0-36.0); MCV 84 fL (80-95); MPV 9.7 fL (8.0-11.0); Platelet Count 409 10^3/uL (130-400); RBC 4.87 10^6/uL (3.93-5.22); RDW 15.5 % (11.7-14.6); RDW-SD 47.8 fL; WBC 9.52 10^3/uL (4.4-10.8)
[2022-02-01 15:30] LABS: ALT 19 U/L (14-59); AST 12 U/L (15-37); Albumin 3.6 g/dL (3.4-5.0); Alkaline Phosphatase 119 U/L (46-116); Anion Gap 9.8 mmol/L (3-11); BUN 14 mg/dL (7-18); Bilirubin, Total 0.2 mg/dL (0.2-1.0); CO2 27.2 mmol/L (21.0-32.0); CREATININE 0.8 mg/dL (0.55-1.02); Calcium 8.8 mg/dL (8.5-10.1); Calculated LDL 121 mg/dL (<100); Chloride 104 mmol/L (98-107); Cholesterol 193 mg/dL (<200); Glucose 104 mg/dL (74-106); HDL Cholesterol 52 mg/dL (40-60); Sodium 141 mmol/L (136-145); Triglyceride 103 mg/dL (<150)
[2022-02-01 15:45] LABS: Hemoglobin A1C 6.1 % (<5.7)
== END 2022-02-01 18:50 | disposition home or self-care (01) ==
LOC: NCHCN 18:49
PROVIDERS: PCP Nurse Practitioner Family; Visit Provider Physician Assistant
DX: R73.03 Prediabetes (principal); I10 Essential (primary) hypertension
CPT/HCPCS: 80053; 80061; 85027; 83036

== ENCOUNTER 2022-12-31 17:07 | Outpatient (REF) | payer MEDICAID, SELFPAY ==
[2022-12-31 19:06] LABS: ALT 27 U/L (14-59); AST 15 U/L (15-37); Albumin 3.8 g/dL (3.4-5.0); Alkaline Phosphatase 116 U/L (46-116); Anion Gap 8.6 mmol/L (3-11); BUN 15 mg/dL (7-18); Bilirubin, Total 0.2 mg/dL (0.2-1.0); CO2 28.4 mmol/L (21.0-32.0); CREATININE 0.9 mg/dL (0.55-1.02); Calcium 9.1 mg/dL (8.5-10.1); Calculated LDL 132 mg/dL (<100); Chloride 100 mmol/L (98-107); Cholesterol 213 mg/dL (<200); Estimated GFR 81.86 (mL/min/1.73m2); Glucose 95 mg/dL (74-106); HDL Cholesterol 51 mg/dL (40-60); Potassium 4.1 mmol/L (3.5-5.1); Sodium 137 mmol/L (136-145); Total Protein 7.5 g/dL (6.4-8.2); Triglyceride 151 mg/dL (<150)
== END 2022-12-31 17:08 | disposition home or self-care (01) ==
LOC: NCHCN 17:07
PROVIDERS: Visit Provider Physician Assistant
DX: R73.03 Prediabetes (principal); I10 Essential (primary) hypertension
CPT/HCPCS: 80053; 80061; 83036

== ENCOUNTER 2023-04-14 03:28 | Outpatient (CLI) | payer MEDICAID, SELFPAY ==
--- NOTE | 2023-04-14 | DI.MAMMO_ITS ---
Exam(s) MAMMO SCREENING EXAM: MAMMO SCREENING CLINICAL HISTORY: SCREENING FOR BREAST CANCER Z12.39. TECHNIQUE: Bilateral full field digital CC and MLO mammographic images were obtained with 3D tomosyn thesis and utilizing computer aided detection (CAD). COMPARISON: Prior mammograms were reviewed. Prior ultrasound examinations also reviewed FINDINGS: No new findings in the left breast. In the right breast the previously described nodule which was shown to be a microcyst on ultrasound i s again noted. However, superimposed upon the same nodule we note on the 3D cc view a 2nd nodule of similar size, approximately 6 x 4 mm. No malignant-appearing microcalcification groups. There is no significant architectural distortion nor skin thickening-retraction. IMPRESSION: 1. No radiographic evidence of malignancy in left breast. 2. There are now 2 nodules in the right breast, one at the 12 o'clock position and the other at the 6 o'clock position. These are superimposed upon each other on the CC image, only separable with 3D c c imaging. Recommend spot compression view and right breast ultrasound. BI-RADS Category 0 - Assessment Incomplete: Need additional imaging evaluation Breast Density - Category B - Scattered areas of fibroglandular density Breast density Category C or D implies that the patient has dense breast tissue. Dense breast tissue can make it harder to find cancer on a mammogram. Dense breast tissue is also associated with an incr eased risk of breast cancer. This information about the result of the mammogram report was provided to the patient to raise their awareness. Use this report when you speak with the patient about their risks for breast cancer, which includes their family history. At that time, you may recommend additional screening tests (Ultrasoun d or MRI) as these tests may add significant information. A negative radiographic report should not delay biopsy if a dominant or clinically suspicious mass is present. Up to ten percent of cancers are not identified on mammography. A negative report may reinforce clinical impression. Adenosis and dense breasts may obscure an underlying neoplasm. False positive reports average 6 to 10%. Patient will receive a letter notifying them of these results.
== END 2023-04-14 03:48 ==
LOC: DI 03:28
PROVIDERS: Visit Provider Physician Assistant
DX: Z12.31 Encounter for screening mammogram for malignant neoplasm of breast (principal)
CPT/HCPCS: 77063; 77067

== ENCOUNTER → 2023-05-12 03:50 | Outpatient (CLI) | payer MEDICAID, SELFPAY ==
--- NOTE | 2023-05-12 | DI.US_ITS ---
Exam(s) MG MAMMO SCREEN CALL BACK UNI US BREAST RT COMPLETE EXAM: MG MAMMO SCREEN CALL BACK UNI and U/S breast RT complete CLINICAL HISTORY: F/U MAMMO, 2 NODULES. TECHNIQUE: Craniocaudal and mediolateral oblique Full Field Digital Mammography views of the right b reast with Computer Aided Diagnosis followed by Tomosynthesis and right breast ultrasound. COMPARISON: Comparison is made with prior examinations. FINDINGS: Mammography/Tomosynthesis: Masses/Architectural Distortion: The identified area in the retroareolar region of the right breast i s not visualized on the additional views. The area does not persist with additional views. Microcalcifictions: No suspicious pleomorphic-type are seen. Skin Thickening/Nipple Retraction: None. Complete right breast US: Echotexture: Normal appearance of the glandular tissue. Shadowing: No suspicious foci. Cyst: 2 tiny cysts are seen clustered at the 10 o'clock position of the right breast 1 cm from the ni pple. Solid lesions: The ovoid hypoechoic area at the 1 o'clock position of the right breast 3 cm from the nipple is unchanged compared to the prior examination. There is a new well-circumscribed ovoid radia lly oriented homogeneously hypoechoic nodule at the 8 o'clock position of the right breast 2 cm from the nipple measuring 0.6 x 0.3 x 0.6 cm. No posterior acoustic enhancement or shadowing is seen. It has benign appearance sonographically and may represent a fibroadenoma or intraparenchymal lymph nod e. Ductal dilation: None. IMPRESSION: 1. No definite evidence of malignancy is noted. 2. A six-month follow-up mammogram and ultrasound are requested for re-evaluation. 3. The findings were discussed with the patient on the date of the examination. BI-RADS Category 3 - 6 month - Probably Benign Finding: Recommend follow-up imaging in 6 months Breast Density - Category B - Scattered areas of fibroglandular density Breast density category C or D implies that the patient has dense breast tissue. Dense breast tissue is very common and is not abnormal but dense breast tissue can make it harder to find cancer on a ma mmogram. Also, dense breast tissue may increase their breast cancer risk. This information about the result of the mammogram report was provided to the patient to raise their awareness. Use this report when you speak with the patient about their risks for breast cancer, which includes their family hist ory. At that time, you may recommend for more screening tests (Ultrasound or MRI) as they might be us eful based on their risk. A negative radiographic report should not delay biopsy if a dominant or clinically suspicious mass is present. Up to ten percent of cancers are not identified on mammography. A negative report may reinforce clinical impression. Adenosis and dense breasts may obscure an underlying neoplasm. False positive reports average 6 to 10%. Patient will receive a letter notifying them of these results.
== END ==
PROVIDERS: PCP Physician Assistant; Visit Provider Physician Assistant
DX: Z12.31 Encounter for screening mammogram for malignant neoplasm of breast (principal); R92.8 Other abnormal and inconclusive findings on diagnostic imaging of breast
CPT/HCPCS: 76642; 77063; 77067

== ENCOUNTER 2024-03-18 13:59 | Outpatient (REF) | payer MEDICAID, SELFPAY ==
[2024-03-18 15:21] LABS: HCT 45.4 % (36.0-46.0); HGB 14.4 g/dL (11.2-15.7); MCH 27.1 pg (27.0-33.0); MCHC 31.7 % (32.0-36.0); MCV 85 fL (80-95); Platelet Count 319 10^3/uL (130-400); RBC 5.32 10^6/uL (3.93-5.22); RDW-SD 53.5 fL; WBC 8.99 10^3/uL (4.4-10.8)
[2024-03-18 15:46] LABS: ALT 26 U/L (14-59); AST 19 U/L (15-37); Alkaline Phosphatase 95 U/L (46-116); Anion Gap 8.4 mmol/L (3-11); BUN 11 mg/dL (7-18); Bilirubin, Total 0.39 mg/dL (0.2-1.0); CO2 30.6 mmol/L (21.0-32.0); CREATININE 0.9 mg/dL (0.55-1.02); Calcium 9.3 mg/dL (8.5-10.1); Calculated LDL 115 mg/dL (<100); Chloride 106 mmol/L (98-107); Cholesterol 186 mg/dL (<200); Estimated GFR 81.35 (mL/min/1.73m2); Glucose 109 mg/dL (74-106); HDL Cholesterol 52 mg/dL (40-60); Potassium 4.4 mmol/L (3.5-5.1); Sodium 145 mmol/L (136-145); Total Protein 7.2 g/dL (6.4-8.2); Triglyceride 98 mg/dL (<150)
[2024-03-18 16:03] LABS: Hemoglobin A1C 5.9 % (<5.7)
== END 2024-03-18 14:00 | disposition home or self-care (01) ==
LOC: NCHCN 13:59
PROVIDERS: PCP Physician Assistant; Visit Provider Physician Assistant
DX: I10 Essential (primary) hypertension (principal); R73.03 Prediabetes
CPT/HCPCS: 80053; 80061; 85027; 83036